=== PATIENT | male | born 1965 | race Two or more races ===

== ENCOUNTER 2022-06-10 16:23 | Inpatient (IN) | payer OTHER ==
[2022-06-10 16:53] VITALS: BMI 26.8
[2022-06-10] MEDS ORDERED: NICOTINE POLACRILEX 2 MG GUM BUC PRN (17:39)
[2022-06-10] MEDS ORDERED: MAG HYDROX/AL HYDROX/SIMETH 30 ML UNIT-DOSE CUP PO PRN (17:39)
[2022-06-10] MEDS ORDERED: DICYCLOMINE HCL 10 MG CAPSULE PO PRN (17:39)
[2022-06-10] MEDS ORDERED: IBUPROFEN 600 MG TABLET (FP) PO PRN (17:39)
[2022-06-10] MEDS ORDERED: NICOTINE 10 MG CARTRIDGE (INHALER) IH PRN (17:39)
[2022-06-10] MEDS ORDERED: ACETAMINOPHEN 325 MG TABLET (FP) PO PRN ×2 (17:39)
[2022-06-10] MEDS ORDERED: ONDANSETRON *ODT* 4 MG TABLET SL PRN (17:39)
[2022-06-10] MEDS ORDERED: IBUPROFEN 400 MG TABLET (FP) PO PRN (17:39)
[2022-06-10] MEDS ORDERED: LOPERAMIDE HCL 2 MG CAPSULE PO PRN (17:39)
[2022-06-10] MEDS ORDERED: MAGNESIUM HYDROX 2400MG/30ML ORAL SUSPENSION 30 ML CUP PO PRN (17:39)
[2022-06-10] MEDS ORDERED: chlordiazePOXIDE HCL 25 MG CAPSULE PO PRN (17:39)
[2022-06-10] MEDS ORDERED: MAGNESIUM CITRATE 300 ML BOTTLE PO PRN (17:39)
[2022-06-10] MEDS ORDERED: BENZOCAINE/MENTHOL (CHLORASEPTIC ) LOZENGE MM PRN (17:39)
[2022-06-10] MEDS ORDERED: BISMUTH SUBSALICYLATE 524 MG/30 ML PO PRN (17:39)
[2022-06-10] MEDS ORDERED: METHOCARBAMOL 500 MG TABLET PO PRN (17:39)
[2022-06-10] MEDS ORDERED: chlordiazePOXIDE HCL 25 MG CAPSULE ONE (17:52)
[2022-06-10] MEDS ORDERED: hydrOXYzine PAMOATE 25 MG CAPSULE (FP) PO ONE (17:52)
[2022-06-10] MEDS: chlordiazePOXIDE HCL 25 MG CAPSULE PO SCH ×2 (17:57→22:20)
[2022-06-10] MEDS: hydrOXYzine PAMOATE 25 MG CAPSULE (FP) PO SCH ×2 (17:58→22:20)
[2022-06-10] MEDS: PRENATAL VITAMINS W/ FOLIC ACID TABLET (FP) PO SCH (18:35)
[2022-06-10] MEDS ORDERED: MELATONIN 5 MG TABLETS PO SCH (22:00)
[2022-06-10] MEDS: THIAMINE HCL 100 MG TABLET (FP) PO SCH (22:20)
[2022-06-11] MEDS: hydrOXYzine PAMOATE 25 MG CAPSULE (FP) PO SCH ×5 (05:37→22:42)
[2022-06-11] MEDS: chlordiazePOXIDE HCL 25 MG CAPSULE PO SCH ×4 (05:37→22:42)
[2022-06-11] MEDS: PRENATAL VITAMINS W/ FOLIC ACID TABLET (FP) PO SCH (10:45)
[2022-06-11 11:40] LABS: HEMATOCRIT 46.4 % (35.4-49); HEMOGLOBIN 15.1 GM/dL (11.7-16.9); MCH 29.8 pg (25.7-33.7); MCHC 32.7 g/dl (32.0-35.9); MEAN CELL VOLUME 91.2 fl (80-96); MEAN PLT VOLUME 8.4 fl (7.5-11.1); PLATELET COUNT 135 10^3/uL (134-434); RBC 5.08 M/mm3 (4.00-5.60)
[2022-06-11 12:02] LABS: BLOOD UREA NITROGEN 11.9 mg/dL (7-18); CALCIUM 9.1 mg/dL (8.5-10.1)
[2022-06-11 12:05] LABS: CREATININE 0.7 mg/dL (0.55-1.3)
[2022-06-11 12:07] LABS: BILIRUBIN,TOTAL 2.3 mg/dL (0.2-1)
[2022-06-11] MEDS: THIAMINE HCL 100 MG TABLET (FP) PO SCH (22:42)
[2022-06-11] MEDS: MELATONIN 5 MG TABLETS PO SCH (22:43)
[2022-06-12] MEDS: chlordiazePOXIDE HCL 25 MG CAPSULE PO SCH ×4 (05:53→22:11)
[2022-06-12] MEDS: hydrOXYzine PAMOATE 25 MG CAPSULE (FP) PO SCH ×5 (05:53→22:14)
[2022-06-12 09:14] VITALS: RESP 18
[2022-06-12] MEDS: PRENATAL VITAMINS W/ FOLIC ACID TABLET (FP) PO SCH (10:49)
[2022-06-12 11:07] LABS: BLOOD UREA NITROGEN 9.5 mg/dL (7-18); CALCIUM 8.5 mg/dL (8.5-10.1)
[2022-06-12 11:11] LABS: BILIRUBIN,TOTAL 1.5 mg/dL (0.2-1); CREATININE 0.6 mg/dL (0.55-1.3); TOT PROT 6.4 g/dl (6.4-8.2)
[2022-06-12 11:19] LABS: ALBUMIN 3.2 g/dl (3.4-5.0)
[2022-06-12] MEDS: THIAMINE HCL 100 MG TABLET (FP) PO SCH (22:11)
[2022-06-12] MEDS: MELATONIN 5 MG TABLETS PO SCH (23:44)
[2022-06-13] MEDS ORDERED: chlordiazePOXIDE HCL 10 MG CAPSULE PO PRN
[2022-06-13] MEDS: hydrOXYzine PAMOATE 25 MG CAPSULE (FP) PO SCH ×5 (05:32→22:25)
[2022-06-13] MEDS: chlordiazePOXIDE HCL 10 MG CAPSULE PO SCH ×5 (05:32→22:27)
[2022-06-13] MEDS: PRENATAL VITAMINS W/ FOLIC ACID TABLET (FP) PO SCH (10:35)
[2022-06-13] MEDS: THIAMINE HCL 100 MG TABLET (FP) PO SCH (22:25)
[2022-06-13] MEDS: MELATONIN 5 MG TABLETS PO SCH (22:26)
[2022-06-14] MEDS ORDERED: chlordiazePOXIDE HCL 10 MG CAPSULE PO SCH (05:00)
[2022-06-14] MEDS: hydrOXYzine PAMOATE 25 MG CAPSULE (FP) PO SCH ×2 (05:15→10:41)
[2022-06-14 09:20] VITALS: BP 108/66; PULSE 79; TEMP 98
[2022-06-14] MEDS: PRENATAL VITAMINS W/ FOLIC ACID TABLET (FP) PO SCH (10:41)
[2022-06-15] MEDS ORDERED: chlordiazePOXIDE HCL 10 MG CAPSULE PO ONE (05:00)
== END 2022-06-14 10:04 | disposition home or self-care (01) | DRG 775 ==
LOC: YASAS 16:23 → Y6N 17:45
PROVIDERS: ADMIT Allergy & Immunology; ATTEND Surgery
PROC: HZ2ZZZZ Detoxification Services for Substance Abuse Treatment (ICD-10-PCS; principal; 2022-06-10)
DX: F10.230 Alcohol dependence with withdrawal, uncomplicated (principal); F10.24 Alcohol dependence with alcohol-induced mood disorder; F10.282 Alcohol dependence with alcohol-induced sleep disorder; F10.280 Alcohol dependence with alcohol-induced anxiety disorder; F17.210 Nicotine dependence, cigarettes, uncomplicated; F41.9 Anxiety disorder, unspecified; G47.00 Insomnia, unspecified
CPT/HCPCS: 36415; 80053; 85027; 86780; 87811; C9803-CS; U0003; U0005

== ENCOUNTER 2025-01-07 16:10 | Inpatient (IN) | payer OTHER ==
[2025-01-07 16:25] VITALS: BMI 23.7
[2025-01-07] MEDS ORDERED: NALOXONE (NARCAN) HCL 4 MG/0.1 ML SPRAY NS PRN (17:34)
[2025-01-07] MEDS ORDERED: NICOTINE POLACRILEX 2 MG GUM BUC PRN (17:34)
[2025-01-07] MEDS ORDERED: MAG HYDROX/AL HYDROX/SIMETH 30 ML UNIT-DOSE CUP PO PRN (17:34)
[2025-01-07] MEDS ORDERED: BENZONATATE 200 MG CAPSULE PO PRN (17:34)
[2025-01-07] MEDS ORDERED: BENZOCAINE/MENTHOL (CHLORASEPTIC ) LOZENGE MM PRN (17:34)
[2025-01-07] MEDS ORDERED: ACETAMINOPHEN 325 MG TABLET (FP) PO PRN (17:34)
[2025-01-07] MEDS ORDERED: MAGNESIUM HYDROX 2400MG/30ML ORAL SUSPENSION 30 ML CUP PO PRN (17:34)
[2025-01-07] MEDS ORDERED: IBUPROFEN 400 MG TABLET (FP) PO PRN (17:34)
[2025-01-07] MEDS ORDERED: ONDANSETRON *ODT* 4 MG TABLET SL PRN (17:34)
[2025-01-07] MEDS ORDERED: BISMUTH SUBSALICYLATE 524 MG/30 ML PO PRN (17:34)
[2025-01-07] MEDS ORDERED: DICYCLOMINE HCL 10 MG CAPSULE PO PRN (17:34)
[2025-01-07] MEDS ORDERED: LOPERAMIDE HCL 2 MG CAPSULE PO PRN (17:34)
[2025-01-07] MEDS ORDERED: POLYETHYLENE GLYCOL (HEALTHYLAX) 3350 17 GM PACKET PO PRN (17:34)
[2025-01-07] MEDS ORDERED: guaiFENesin 600 MG TABLET.ER (FP) PO PRN (17:34)
[2025-01-07] MEDS ORDERED: chlordiazePOXIDE HCL 25 MG CAPSULE PO PRN (17:38)
[2025-01-07] MEDS ORDERED: chlordiazePOXIDE HCL 25 MG CAPSULE ONE (18:19)
[2025-01-07] MEDS: chlordiazePOXIDE HCL 25 MG CAPSULE PO SCH (18:25)
[2025-01-07] MEDS: MELATONIN 5 MG TABLETS PO SCH (22:18)
[2025-01-07] MEDS: THIAMINE 100 MG TABLET PO SCH (22:18)
[2025-01-08] MEDS: NICOTINE 14 MG/24 HOURS TOPICAL PATCH TD SCH (10:32)
[2025-01-08] MEDS: PRENATAL VITAMINS W/ FOLIC ACID TABLET (FP) PO SCH (10:34)
[2025-01-08 11:29] LABS: HEMATOCRIT 41.2 % (40.1-51.0); HEMOGLOBIN 13.5 g/dL (13.7-17.5); MCHC 32.8 g/dl (32.3-36.5); MEAN PLT VOLUME 11.3 fl (9.4-12.4); PLATELET COUNT 86 x10^3/uL (163-337); RDW 14.7 % (12.2-16.1)
[2025-01-08 12:00] LABS: CHLORIDE 96 mmol/L (98-107); POTASSIUM 3.8 mmol/L (3.5-5.1); SODIUM 139 mmol/L (136-145)
[2025-01-08 12:03] LABS: ALBUMIN 3.7 g/dl (3.4-5.0); ANION GAP 14 mmol/L (4-13); BLOOD UREA NITROGEN 18.7 mg/dL (7-18); CALCIUM 9.1 mg/dL (8.5-10.1); CO2 29 mmol/L (21-32); GLUCOSE,RANDOM 135 mg/dL (74-106)
[2025-01-08 12:06] LABS: CREATININE 0.8 mg/dL (0.55-1.3); SGOT/AST 110 U/L (15-37); SGPT/ALT 110 U/L (13-61)
[2025-01-08] MEDS: TETRAHYDROZOLINE HCL EYE DROPS OU PRN (12:06)
[2025-01-08 12:08] LABS: BILIRUBIN,TOTAL 2.5 mg/dL (0.2-1); TOT PROT 7.2 g/dl (6.4-8.2)
[2025-01-08 12:09] LABS: ALK PHOS 41 U/L (45-117)
[2025-01-09] MEDS: chlordiazePOXIDE HCL 25 MG CAPSULE PO SCH (05:23)
[2025-01-09] MEDS: IBUPROFEN 600 MG TABLET (FP) PO PRN (12:53)
[2025-01-09] MEDS ORDERED: LORazepam 1 MG TABLET PO PRN (14:06)
[2025-01-09] MEDS: LORazepam 2 MG TABLET PO SCH (17:08)
[2025-01-10] MEDS ORDERED: chlordiazePOXIDE HCL 10 MG CAPSULE PO PRN
[2025-01-10] MEDS ORDERED: chlordiazePOXIDE HCL 10 MG CAPSULE PO SCH (05:00)
[2025-01-10] MEDS: LORazepam 1 MG TABLET PO SCH (05:50)
[2025-01-10] MEDS ORDERED: LIDOCAINE 4% PATCH TP SCH (13:30)
[2025-01-10] MEDS: METHOCARBAMOL 500 MG TABLET PO PRN (17:31)
[2025-01-10] MEDS: LIDOCAINE PATCH REMOVAL MC ONE (22:25)
[2025-01-10] MEDS: hydrOXYzine PAMOATE 25 MG CAPSULE (FP) PO PRN (23:09)
[2025-01-11] MEDS ORDERED: chlordiazePOXIDE HCL 10 MG CAPSULE PO SCH (05:00)
[2025-01-11] MEDS: LORazepam 0.5 MG TABLET PO SCH (05:45)
[2025-01-11 09:30] VITALS: BP 113/62; PULSE 76; RESP 18; TEMP 97.6
[2025-01-11] MEDS ORDERED: ACAMPROSATE CALCIUM 333 MG TABLET.DR PO SCH (14:00)
[2025-01-11] MEDS ORDERED: ARTIFICIAL TEARS OPHTHALMIC DROPS OU SCH (14:00)
[2025-01-12] MEDS ORDERED: chlordiazePOXIDE HCL 10 MG CAPSULE PO ONE (05:00)
[2025-01-12] MEDS ORDERED: LORazepam 0.5 MG TABLET PO ONE (05:00)
== END 2025-01-11 09:29 | disposition home or self-care (01) | DRG 775 ==
LOC: YASAS 16:10 → Y6N 18:22
PROVIDERS: ADMIT Neuromusculoskeletal Medicine & OMM; ATTEND Neuromusculoskeletal Medicine & OMM
PROC: HZ2ZZZZ Detoxification Services for Substance Abuse Treatment (ICD-10-PCS; principal; 2025-01-07)
DX: F10.230 Alcohol dependence with withdrawal, uncomplicated (principal); F17.210 Nicotine dependence, cigarettes, uncomplicated; F10.282 Alcohol dependence with alcohol-induced sleep disorder; F10.24 Alcohol dependence with alcohol-induced mood disorder; F32.A Depression, unspecified; F41.9 Anxiety disorder, unspecified; G47.00 Insomnia, unspecified; R79.89 Other specified abnormal findings of blood chemistry
CPT/HCPCS: 36415; 80053; 80305; 80307; 82140; 82247; 82962; 83036; 84450; 85027; 86780; 86803; 93005; 93010